=== PATIENT | female | born 1955 | race Two or more races ===

== ENCOUNTER 2025-03-16 19:31 | Inpatient (IN) | payer OTHER ==
[~2025-03-16] VITALS: Ht 157.5 cm; Wt 77.2 kg
--- NOTE | 2025-03-16 19:59 | ECG ---
[facility] Test Date: 2025-03-16 Test Time: 19:45:35 Pat Name: AMY KENT Department: Room: Gender: F Supervisor Pigment Making: JEREMY : 1955 Requested By: CAROL ANDRADE Order Number: [id number] Reading MD: Measurements Intervals [place] Rate: 63 P: 49 VA: 165 QRS: 39 QRSD: 82 T: 40 QT: 412 QTc: 422 Interpretive Statements Sinus rhythm Probable left atrial enlargement Please click the below link to view image of tracing.
[2025-03-16] MEDS: MECLIZINE HCL 25 MG TAB PO ONE (20:26)
[2025-03-16] MEDS: SODIUM CHLORIDE 0.9% 1,000 ML IV ONE (20:43)
--- NOTE | 2025-03-16 20:43 | DVH ---
CLINICAL HISTORY: Severe dizziness, HERNANDEZ TECHNIQUE: Helical scanning was performed of the head from the skull base to the vertex. Multiplanar reconstructions were performed. This exam was performed according to our departmental dose optimizat ion program. Up-to-date CT equipment and radiation dose reduction techniques are utilized as appropri ate. CTDI 58 DLP 818 COMPARISON: None FINDINGS: There is no evidence for acute intracranial hemorrhage, acute ischemic changes, mass, mass effect, or extra-axial fluid collection. There is no hydrocephalus or midline shift. There is no effacement of the cerebral sulci and basal subarachnoid cisterns. The geiger-white matter differentiation is well petrona ntained. The imaged paranasal sinuses are clear. There has been bilateral cataract extraction. IMPRESSION: NO ACUTE INTRACRANIAL ABNORMALITY SEEN.
[2025-03-16 20:59] LABS: Hematocrit 42.8 % (36.0-46.0); Hemoglobin 14.8 g/dL (12.2-16.2); Mean Corpuscular Hemoglobin 31.1 pg (28.0-32.0); Mean Corpuscular Volume 90.2 fL (80.0-100.0); Nucleated Red Blood Cells % 0.1 %
[2025-03-16 21:13] LABS: Potassium 4.0 mmol/L (3.5-5.1); Sodium 139 mmol/L (136-145)
[2025-03-16 21:14] LABS: Anion Gap 8 (5-15); Carbon Dioxide 24 mmol/L (20-31)
[2025-03-16 21:19] LABS: BUN/Creatinine Ratio 17.6 (10.0-20.0); Blood Urea Nitrogen 13 mg/dL (9-23)
[2025-03-16 21:25] LABS: Calcium 10.5 mg/dL (8.7-10.4); Chloride 107 mmol/L (98-107); Glucose 112 mg/dL (74-106)
--- NOTE | 2025-03-16 22:26 | ED.PDOC ---
History of Present Illness Chief Complaint: Nausea/Vomiting Time Seen by MD: 19:48 Allergies: Coded Allergies: NO KNOWN ALLERGIES (Unverified , 03/16/25) Mode of Arrival: Ambulatory Was a procedure done? Was a procedure done?: No EKG EKG : Comments NSR. Rate 64. No STEMI. ? Left atrial enlargement. Differential Dx Considerations may include: Differential diagnoses considered include but are not limited to cardiac structural disease, arrhythmia, acute coronary syndrome, orthostasis, pulmonary embolism, dissection, seizure, basilar stroke, other. X-Ray, Labs, Meds, VS Vital Signs Date Time Temp Pulse Resp B/P (MAP) Pulse Ox O2 Delivery O2 Flow Rate FiO2 03/16/25 20:52 Room Air* 0 21 03/16/25 20:47 55 159/85 189 105/59 03/16/25 20:46 98.0 57 16 159/85 (109) 97 98.0 03/16/25 19:45 63 03/16/25 19:37 98.0 62 16 187/99 96 98.0 Lab Test 03/16/25 21:38 03/16/25 20:43 Range/Units Troponin I High Sensitivity 5 3 L </=34 ng/L White Blood Count 6.9 4.4-10.8 10^3/uL Red Blood Count 4.75 4.0-5.20 10^6/uL Hemoglobin 14.8 12.2-16.2 g/dL Hematocrit 42.8 36.0-46.0 % Mean Corpuscular Volume 90.2 80.0-100.0 fL Mean Corpuscular Hemoglobin 31.1 28.0-32.0 pg Mean Corpuscular Hemoglobin Concent 34.5 32.0-36.0 g/dL Red Cell Distribution Width 13.6 11.8-14.3 % Platelet Count 224 140-450 10^3/uL Mean Platelet Volume 9.8 6.9-10.8 fL Neutrophils (%) (Auto) 68.1 37.0-80.0 % Lymphocytes (%) (Auto) 22.6 10.0-50.0 % Monocytes (%) (Auto) 6.2 0.0-12.0 % Eosinophils (%) (Auto) 2.8 0.0-7.0 % Basophils (%) (Auto) 0.3 0.0-2.0 % Neutrophils # (Auto) 4.7 1.6-8.6 10 ^3/uL Lymphocytes # (Auto) 1.6 0.4-5.4 10 ^3/uL Monocytes # (Auto) 0.4 0-1.3 10 ^3/uL Eosinophils # (Auto) 0.2 0-0.8 10 ^3/uL Basophils # (Auto) 0 0-0.2 10 ^3/uL Nucleated Red Blood Cells 0.1 % Sodium Level 139 136-145 mmol/L Potassium Level 4.0 3.5-5.1 mmol/L Chloride Level 107 98-107 mmol/L Carbon Dioxide Level 24 20-31 mmol/L Anion Gap 8 5-15 Blood Urea Nitrogen 13 9-23 mg/dL Creatinine 0.74 0.550-1.02 mg/dL Glomerular Filtration Rate Calc 87 >90 mL/min BUN/Creatinine Ratio 17.6 10.0-20.0 Serum Glucose 112 H 74-106 mg/dL Calcium Level 10.5 H 8.7-10.4 mg/dL B-Type Natriuretic Peptide 95.26 0-100 pg/mL Current Medications Medications (Trade) Dose Ordered Sig/Mikaela Route Start Time Stop Time Status Last Admin Sodium Chloride 1,000 ml @ 1,000 mls/hr Q1H ONCE IV 03/16/25 20:15 03/16/25 21:14 DC 03/16/25 20:43 Meclizine HCl (Antivert Tablet) 50 mg ONCE ONCE PO 03/16/25 20:15 03/16/25 20:16 DC 03/16/25 20:26 PATIENT: AMY KENT ACCT: [id number] UNIT: [id number] : 1955 LOC: ER ROOM / BED: / AGE / SEX: 69 / F ADM STATUS: REG ER SERVICE 13 ORDERING PHYSICIAN: CAROL ANDRADE MD PROCEDURE(s): HWOCT - HEAD WITHOUT CONTRAST REASON: Severe dizziness, HERNANDEZ ORDER NUMBER(s): [id number], ACCESSION NUMBER(s): [id number] CLINICAL HISTORY: Severe dizziness, HERNANDEZ TECHNIQUE: Helical scanning was performed of the head from the skull base to the vertex. Multiplanar reconstructions were performed. This exam was performed according to our departmental dose optimization program. Up-to-date CT equipment and radiation dose reduction techniques are utilized as appropriate. CTDI 58 DLP 818 COMPARISON: None FINDINGS: There is no evidence for acute intracranial hemorrhage, acute ischemic changes, mass, mass effect, or extra-axial fluid collection. There is no hydrocephalus or midline shift. There is no effacement of the cerebral sulci and basal subarachnoid cisterns. The geiger-white matter differentiation is well maintained. The imaged paranasal sinuses are clear. There has been bilateral cataract extraction. IMPRESSION: NO ACUTE INTRACRANIAL ABNORMALITY SEEN. Time of 1ST Reevaluation: 22:21 Reevaluation 1ST: Unchanged Patient Education/Counseling: Other (need for admission) Family Education/Counseling: Other (need for admission) SEPSIS Sepsis Screen Date sepsis recognized/suspect: Mar 16, 2025 Time Sepsis recognized/suspect: 1940 Recent Procedure: No On Antibiotic Therapy: No Respiratory Rate >20: No Heart Rate >90: No Temp<36 C (96.8 F) or >38.3 C: No SBP <90 or MAP <65 mmHG: No New Acute Mental Status Change: No Is the patient on CPAP, BIPAP,: No Physician Orders Computator (03/16/25 ) Orthostatic Vital Signs (03/16/25 ) Saline Lock (03/16/25 20:14) Fall Precautions Initiated (03/16/25 20:14) Head Without Contrast (03/16/25 20:14) Vital Signs Date Time Temp Pulse Resp B/P (MAP) Pulse Ox O2 Delivery O2 Flow Rate FiO2 03/16/25 20:52 Room Air* 0 21 03/16/25 20:47 55 159/85 189 105/59 03/16/25 20:46 98.0 57 16 159/85 (109) 97 98.0 03/16/25 19:45 63 03/16/25 19:37 98.0 62 16 187/99 96 98.0 Laboratory Tests Test 03/16/25 20:43 White Blood Count 6.9 10^3/uL (4.4-10.8) Medications Medications Dose Ordered Sig/Mikaela Route Start Time Stop Time Status Last Admin Dose Admin Meclizine HCl 50 mg ONCE ONCE PO 03/16/25 20:15 03/16/25 20:16 DC 03/16/25 20:26 Sodium Chloride 1,000 ml @ 1,000 mls/hr Q1H ONCE IV 03/16/25 20:15 03/16/25 21:14 DC 03/16/25 20:43 Departure 1 Departure Time of Disposition: 22:26 Impression: Primary Impression: Dizziness Additional Impressions: Orthostatic hypotension Chest pain Disposition: ADMITTED INPATIENT Condition: Stable Comments Patient admitted to hospitalist service for further treatment, evaluation and m onitoring. MDM: Extensive evaluation was performed in attempt to identify or rule out: (See differential diagnosis section) The following tests were ordered, and results were reviewed by me and discussed with patient: (See diagnostic results section) The following test were independently interpreted by me: N/A I reviewed and agreed with the following test results read by other providers: N/A I reviewed the following notes from the pt's past medical encounters: N/A Additional information was gathered from interviewing the following independent historians: N/A Discussion of management or test interpretation with external physician/other qualified health childcare center administrator: Dony Tubbs Decision regarding hospitalization or escalation of hospital level of care: Risk and benefits of admission for further treatment of patient's condition was considered. Due to patient's current clinical condition, high risk of decline and poor outcome if discharged and need for further inpatient management and monitoring, patient will be admitted to the hospital. Regarding hospitalization or escalation of hospital level of care: Risks and benefits of admission for further treatment of patient's condition was considered however due to patient's stable condition patient will be discharged to follow up closely or return to care for worsening of condition or inability to follow up. Critical Care Note Critical Care Time?: No Stability Stability form required: No Heart Score Heart Score: Heart Score Response (Comments) Value History N/A 0 EKG N/A 0 Age N/A 0 Risk Factors N/A 0 Troponin N/A 0 Total 0 CAROL ANDRADE MD Mar 16, 2025 22:26
[2025-03-17] VITALS (10 sets, daily range): BP systolic 126–156; BP diastolic 60–84; PULSE 54–76; RESP 12–20; TEMP 97.5–98.9; O2SAT 93–97
[2025-03-17] MEDS ORDERED: NITROGLYCERIN 0.4 MG SL TAB SL PRN (00:15)
[2025-03-17] MEDS ORDERED: DOCUSATE SOD 100 MG CAP PO PRN (00:15)
[2025-03-17] MEDS ORDERED: ONDANSETRON HCL 4 MG/2 ML VIAL IV PRN (00:15)
[2025-03-17] MEDS ORDERED: ACETAMINOPHEN 325 MG TAB PO PRN (00:15)
[2025-03-17] MEDS ORDERED: MORPHINE SULFATE INJ 2 MG/ml SYRG IV PRN (00:15)
[2025-03-17] MEDS: SODIUM CHLORIDE 0.9% 1,000 ML IV SCH ×2 (00:15→07:25)
[2025-03-17] MEDS ORDERED: LOSA-533 PO (01:42)
--- NOTE | 2025-03-17 02:02 | DVHHP2 ---
MILKA ANN RADIO STATION MANAGER 03/17/25 0202: History of Present Illness Reason for Visit: Dizziness History of Present Illness 69-year-old female with past medical history of hypertension presents with complaints of dizziness x1 day. Patient is also endorsing chest pain, nausea, vomiting, diaphoresis. Patient endorses she is normally an active person with out complications. States her PCP recently made an adjustment to her home medications and added 10 mg Bystolic. Also takes losartan 50 mg twice a day. While in the emergency department patient did have positive orthostatic vital signs. At this time the patient denies fevers, chills, cough, congestion, abdominal pain, dysuria, leg edema. Cardiovascular: HTN Smoke: No ALCOHOL: none Drugs: None Lives: with Family Review of Systems Constitutional: Yes: Malaise; No: Fever, Chills, Sweats, Weakness, Other Eyes: No: Pain, Vision change, Conjunctivae inflammation, Eyelid inflammation, Other, Redness ENT: No: Ear pain, Ear discharge, Nose pain, Nose discharge, Nose congestion, Mouth pain, Mouth swelling, Throat pain, Throat swelling, Other Respiratory: No: Cough, Dry, Shortness of breath, SOB with excertion, Wheezing, Hemoptysis, Pleuritic Pain, Sputum, Wheezing, Other Cardiovascular: Chest Pain, Lt Headedness; No: Palpitations, Orthopnea, Paroxysmal Noc. Dyspnea, Edema, Other Gastrointestinal: Nausea, Vomiting; No: Abdominal Pain, Diarrhea, Constipation, Melena, Hematochezia, Other Genitourinary: No Dysuria, No Frequency, No Incontinence, No Hematuria, No Retention, No Other Musculoskeletal: No: other, neck pain, shoulder pain, arm pain, back pain, hand pain, leg pain, foot pain Skin: No: Rash, Lesions, Jaundice, Bruising, Other Neurological: No: Weakness, Numbness, Incoordination, Change in speech, Confusion, Seizures, Other Allergies: Coded Allergies: NO KNOWN ALLERGIES (Unverified , 03/16/25) Medications Current Medications Medications Dose Ordered Sig/Mikaela Route Start Time Stop Time Status Last Admin Dose Admin Sodium Chloride 1,000 ml @ 75 mls/hr [id number] IV 03/17/25 00:15 Docusate Sodium 100 mg BIDPRN PRN PO 03/17/25 00:15 Acetaminophen 650 mg Q6HP PRN PO 03/17/25 00:15 Ondansetron HCl 4 mg Q4HP PRN IV 03/17/25 00:15 Enoxaparin Sodium 40 mg DAILY SC 03/17/25 10:00 Nitroglycerin 0.4 mg Q5MINP PRN SL 03/17/25 00:15 Morphine Sulfate 2 mg Q30M PRN IV 03/17/25 00:15 Losartan Potassium 50 mg BID PO 03/17/25 10:00 Exam Vital Signs Vital Signs Date Time Temp Pulse Resp B/P (MAP) Pulse Ox O2 Delivery O2 Flow Rate FiO2 03/16/25 20:52 Room Air* 0 21 03/16/25 20:47 55 159/85 189 105/59 03/16/25 20:46 98.0 16 97 98.0 General Appearance: Alert, Oriented X3, Cooperative, No acute distress HEENT: Atraumatic, PERRLA, EOMI Respiratory: Normal air movement, Other Cardiovascular: Normal S1 Abdominal: Normal bowel sounds, Soft, No tenderness Extremities: No cyanosis, No edema Skin: No rashes, No breakdown Neuro: Normal speech, Strength at 5/5 X4 ext, Sensation intact, Cranial nerves 3-12 NL Psych/Mental Status: Mental status NL, Mood NL Labs/Xrays Labs Test 03/16/25 21:38 03/16/25 20:43 Range/Units Troponin I High Sensitivity 5 </=34 ng/L White Blood Count 6.9 4.4-10.8 10^3/uL Red Blood Count 4.75 4.0-5.20 10^6/uL Hemoglobin 14.8 12.2-16.2 g/dL Hematocrit 42.8 36.0-46.0 % Mean Corpuscular Volume 90.2 80.0-100.0 fL Mean Corpuscular Hemoglobin 31.1 28.0-32.0 pg Mean Corpuscular Hemoglobin Concent 34.5 32.0-36.0 g/dL Red Cell Distribution Width 13.6 11.8-14.3 % Platelet Count 224 140-450 10^3/uL Mean Platelet Volume 9.8 6.9-10.8 fL Neutrophils (%) (Auto) 68.1 37.0-80.0 % Lymphocytes (%) (Auto) 22.6 10.0-50.0 % Monocytes (%) (Auto) 6.2 0.0-12.0 % Eosinophils (%) (Auto) 2.8 0.0-7.0 % Basophils (%) (Auto) 0.3 0.0-2.0 % Neutrophils # (Auto) 4.7 1.6-8.6 10 ^3/uL Lymphocytes # (Auto) 1.6 0.4-5.4 10 ^3/uL Monocytes # (Auto) 0.4 0-1.3 10 ^3/uL Eosinophils # (Auto) 0.2 0-0.8 10 ^3/uL Basophils # (Auto) 0 0-0.2 10 ^3/uL Nucleated Red Blood Cells 0.1 % Sodium Level 139 136-145 mmol/L Potassium Level 4.0 3.5-5.1 mmol/L Chloride Level 107 98-107 mmol/L Carbon Dioxide Level 24 20-31 mmol/L Anion Gap 8 5-15 Blood Urea Nitrogen 13 9-23 mg/dL Creatinine 0.74 0.550-1.02 mg/dL Glomerular Filtration Rate Calc 87 >90 mL/min BUN/Creatinine Ratio 17.6 10.0-20.0 Serum Glucose 112 H 74-106 mg/dL Calcium Level 10.5 H 8.7-10.4 mg/dL B-Type Natriuretic Peptide 95.26 0-100 pg/mL SEPSIS Sepsis Screen Date sepsis recognized/suspect: Mar 16, 2025 Time Sepsis recognized/suspect: 1940 Recent Procedure: No On Antibiotic Therapy: No Respiratory Rate >20: No Heart Rate >90: No Temp<36 C (96.8 F) or >38.3 C: No SBP <90 or MAP <65 mmHG: No New Acute Mental Status Change: No Is the patient on CPAP, BIPAP,: No Physician Orders Wheel Lacer And Truer (03/16/25 ) Orthostatic Vital Signs (03/16/25 ) Saline Lock (03/16/25 20:14) Fall Precautions Initiated (03/16/25 20:14) Head Without Contrast (03/16/25 20:14) Admit (03/17/25 00:07) Code Status (03/17/25 00:07) Vital Signs .PER UNIT PROTOCOL (03/17/25 00:07) Review Orders With Adm. (03/17/25 00:07) Encourage Activity As Tolerate (03/17/25 00:07) Consistent Carb(Ccho)Diabetes (03/17/25 Breakfast) Sodium Chloride 0.9% (03/17/25 00:15) Oxygen By Face Mask (03/17/25 00:07) Docusate Sodium Capsule (Colace Capsule) (03/17/25 00:15) Acetaminophen Tablet (Tylenol Tablet) (03/17/25 00:15) Notify Md Of Changes From Base (03/17/25 00:07) Advance Directive (03/17/25:07) Echo 2d Mode Cardiac Dop (03/17/25:07) Basic Metabolic Panel (03/17/25 05:00) Basic Metabolic Panel (03/18/25 05:00) Basic Metabolic Panel (03/19/25 05:00) Complete Blood Count (03/17/25 05:00) Complete Blood Count (03/18/25 05:00) Complete Blood Count (03/19/25 05:00) Patient Condition (03/17/25 00:07) Allergies (03/17/25 00:07) Ondansetron Hcl (Zofran) (03/17/25 00:15) Enoxaparin Sodium (Lovenox) (03/17/25 10:00) Nitroglycerin Sublingual (Ntrostat Subli (03/17/25 00:15) Morphine Sulfate Injection (03/17/25 00:15) Stat Ekg For Chest Pain (03/17/25 00:07) Notify Md Of Changes From Base (03/17/25 00:07) Band Saw Operator Cake Cutting For 24 Hours (03/17/25 00:07) Emergency Dysrhythmia Protocol (03/17/25 00:07) Rhythm Strips Once Every Shift (03/17/25 00:07) Oxygen By Nasal Cannula (03/17/25 00:07) * Cardiology Consult (03/17/25 00:07) Pt Request For Service (03/17/25 00:) Orthostatic Vital Signs (03/17/25 08:00) Orthostatic Vital Signs (03/18/25 08:00) Orthostatic Vital Signs (03/19/25 08:00) Orthostatic Vital Signs (03/20/25 08:00) Losartan Tablet (Cozaar Tablet) (03/17/25 10:00) Vital Signs Date Time Temp Pulse Resp B/P (MAP) Pulse Ox O2 Delivery O2 Flow Rate FiO2 03/16/25 20:52 Room Air* 0 21 03/16/25 20:47 55 159/85 189 105/59 03/16/25 20:46 98.0 57 16 159/85 (109) 97 98.0 03/16/25 19:45 63 03/16/25 19:37 98.0 62 16 187/99 96 98.0 Laboratory Tests Test 03/16/25 20:43 White Blood Count 6.9 10^3/uL (4.4-10.8) Medications Medications Dose Ordered Sig/Mikaela Route Start Time Stop Time Status Last Admin Dose Admin Meclizine HCl 50 mg ONCE ONCE PO 03/16/25 20:15 03/16/25 20:16 DC 03/16/25 20:26 50 MG Sodium Chloride 1,000 ml @ 1,000 mls/hr Q1H ONCE IV 03/16/25 20:15 03/16/25 21:14 DC 03/16/25 20:43 1,000 MLS/HR Assessment/Plan Assessment/Plan Uncontrolled HTN Chest pain Dizziness Positive orthostatic VS Plan Admit telemetry Cardiology consult. Echocardiogram. Continue home medication. As needed antihypertensive for optimal BP management. Orthostatic vital signs every shift. Will hold Bystolic for Bradycardia. IVF PT evaluation. DVT ppx lovenox Plan discussed with: Patient, Daughter My Orders Orders - MILKA ANN NP Procedure Category Date Status Time Admit ADMIT 03/17/25 Transmitted 00:07 Code Status CODE 03/17/25 Transmitted 00:07 Vital Signs LUIS MANUEL 03/17/25 In Process 00:07 Review Orders With LUIS MANUEL 03/17/25 In Process Adm. 00:07 Encourage Activity As LUIS MANUEL 03/17/25 In Process Tolerate 00:07 Consistent DIET 03/17/25 Transmitted Carb(Ccho)Diabetes Breakfast Sodium Chloride 0.9% PHA 03/17/25 In Process 00:15 Oxygen By Face Mask RT 03/17/25 Transmitted 00:07 Docusate Sodium PHA 03/17/25 In Process Capsule (Colace 00:15 Acetaminophen Tablet PHA 03/17/25 In Process (Tylenol Tablet) 00:15 Notify Of Changes LUIS MANUEL 03/17/25 In Process From Base 00:07 Advance Directive LUIS MANUEL 03/17/25 In Process 00:07 Echo 2d Mode Cardiac US 03/17/25 Logged DOP 00:07 Basic Metabolic Panel LAB 03/17/25 Logged 05:00 Basic Metabolic Panel LAB 03/18/25 Verified 05:00 Basic Metabolic Panel LAB 03/19/25 Verified 05:00 Complete Blood Count LAB 03/17/25 Logged 05:00 Complete Blood Count LAB 03/18/25 Verified 05:00 Complete Blood Count LAB 03/19/25 Verified 05:00 Patient Condition ORDERS 03/17/25 Transmitted 00:07 Allergies LUIS MANUEL 03/17/25 In Process 00:07 Ondansetron Hcl PHA 03/17/25 In Process (Zofran) 00:15 Enoxaparin Sodium PHA 03/17/25 In Process (Lovenox) 10:00 Nitroglycerin PHA 03/17/25 In Process Sublingual (Ntrostat 00:15 Morphine Sulfate PHA 03/17/25 In Process Injection 00:15 Stat Ekg For Chest LUIS MANUEL 03/17/25 In Process Pain 00:07 Notify Of Changes BANNER 03/17/25 In Process From Base 00:07 Band Saw Operator Cake Cutting For BANNER 03/17/25 In Process 24 Hours 00:07 Emergency Dysrhythmia LUIS MANUEL 03/17/25 In Process Protocol 00:07 Rhythm Strips Once [place]ANNER 03/17/25 In Process Every Shift 00:07 Oxygen By Nasal RT 03/17/25 Transmitted Cannula 00:07 * Cardiology Consult CONS 03/17/25 Transmitted 00:07 Pt Request For Service PT 03/17/25 Logged 00:07 Orthostatic Vital ORDERS 03/17/25 Transmitted Signs 08:00 Orthostatic Vital ORDERS 03/18/25 Transmitted Signs 08:00 Orthostatic Vital ORDERS 03/19/25 Transmitted Signs 08:00 Orthostatic Vital ORDERS 03/20/25 Transmitted Signs 08:00 Losartan Tablet PHA 03/17/25 In Process (Cozaar Tablet) 10:00 Date of Service: Mar 17, 2025 Billing Provider: CORDELIA JONES MD Common Visit Codes: NOT BILLABLE CORDELIA JONES MD 03/17/25 1350: Review of Systems Allergies: Coded Allergies: NO KNOWN ALLERGIES (Unverified , 03/16/25) Additional Comments Additional Comments Additional Comments Patient seen and evaluated by me earlier today. Patient is seen and admitted by nurse practitioner this morning. I agree with his evaluation, documentation, assessment and care plan as outlined. MILKA ANN NP Mar 17, 2025 02:02 CORDELIA JONES MD Mar 17, 2025 13:50
[2025-03-17] MEDS: hydrALAZINE HCL 20 MG/ML VL IV PRN (02:23)
[2025-03-17 06:35] LABS: Hematocrit 40.5 % (36.0-46.0); Hemoglobin 14.1 g/dL (12.2-16.2); Mean Corpuscular Hemoglobin 30.9 pg (28.0-32.0); Mean Corpuscular Volume 89.0 fL (80.0-100.0); Nucleated Red Blood Cells % 0.1 %
[2025-03-17 06:40] LABS: Anion Gap 7 (5-15); Calcium 9.7 mg/dL (8.7-10.4); Carbon Dioxide 27 mmol/L (20-31); Potassium 4.4 mmol/L (3.5-5.1); Sodium 142 mmol/L (136-145)
[2025-03-17 06:41] LABS: Chloride 108 mmol/L (98-107)
[2025-03-17 06:46] LABS: BUN/Creatinine Ratio 12.0 (10.0-20.0); Blood Urea Nitrogen 9 mg/dL (9-23); Glucose 103 mg/dL (74-106)
[2025-03-17] MEDS: LOSARTAN POTASSIUM 50 MG TAB PO SCH (09:16)
[2025-03-17] MEDS: ENOXAPARIN SOD 40 MG/0.4 ML SYRINGE SC SCH (09:16)
--- NOTE | 2025-03-17 09:35 | DVHINCON2 ---
Date Seen: Mar 17, 2025 Referring Physician JOSE Tubbs Reason for Consultation Shortness of breath and elevated blood pressure. History of Present Illness This is a 69-year-old female with a history of refractory hypertension who presents for evaluation of shortness of breath and high blood pressure. She reports being previously on Losartan 50 mg BID, also amlodipine 5 mg which was discontinued by her PCP and replaced with Nebivolol 10 mg daily. Since that change, she has experienced dizziness, nausea, and a sensation of shortness of breath rather than true chest pain. She notes that her shortness of breath began after a COVID infection in June and has progressively worsened, with decreased exercise tolerance. Yesterday, she experienced a brief episode of confusion while paying bills she lost focus for a few minutes but recovered spontaneously. She currently denies weakness, speech difficulty, or visual changes. She reports orthopnea but denies paroxysmal nocturnal dyspnea or leg swelling. Past Medical History Hypertension (refractory) COVID infection (Jun 2024) Medications Losartan 50 mg BID Nebivolol 10 mg daily Allergies No known drug allergies EKG: Normal sinus rhythm. Troponin: Negative. Chest X-ray: Pending. Echocardiogram: Pending. Family History: Patient reports no known family medical history. Allergies: Coded Allergies: NO KNOWN ALLERGIES (Unverified , 03/16/25) Home Meds Active Scripts Irbesartan (IRBESARTAN) 300 Mg Tab, 1 TAB PO DAILY for 30 Days, #30 TAB 5 Refills Prov:AMY SANTANA RESIDENT 03/17/25 Reported Medications Losartan Potassium (Losartan Potassium) 25 Mg Tab, 1 TAB PO DAILY, #90 TAB 1 Refill 03/17/25 Current Medications Current Medications Medications (Trade) Dose Ordered Sig/Mikaela Route PRN Reason Start Time Stop Time Status Last Admin Sodium Chloride 1,000 ml @ 75 mls/hr [id number] IV 03/17/25 00:15 03/17/25 06:40 DC Docusate Sodium (Colace Capsule) 100 mg BIDPRN PRN PO FOR CONSTIPATION 03/17/25 00:15 Acetaminophen (Tylenol Tablet) 650 mg Q6HP PRN PO PAIN SCALE 1-3 OR TEMP>100.4 03/17/25 00:15 Ondansetron HCl (Zofran) 4 mg Q4HP PRN IV NAUSEA / VOMITING 03/17/25 00:15 Enoxaparin Sodium (Lovenox) 40 mg DAILY SC 03/17/25 10:00 03/17/25 09:16 Nitroglycerin (Ntrostat Sublingual) 0.4 mg Q5MINP PRN SL FOR CHEST PAIN 03/17/25 00:15 Morphine Sulfate 2 mg Q30M PRN IV FOR CHEST PAIN 03/17/25 00:15 Losartan Potassium (Cozaar Tablet) 50 mg BID PO 03/17/25 10:00 03/17/25 09:16 Hydralazine HCl (Apresoline Injection) 10 mg Q6HR PRN IV SBP > 160 03/17/25 02:15 03/17/25 02:23 Sodium Chloride 1,000 ml @ 75 mls/hr [id number] IV 03/17/25 06:45 03/17/25 20:04 03/17/25 07:25 Nifedipine (Procardia Xl (Time-Release)) 30 mg DAILY PO 03/17/25 10:00 UNV Review of Systems Constitutional: Denies fever or chills. Cardiac: Reports dyspnea on exertion; denies chest pain or palpitations. Respiratory: Reports shortness of breath; denies cough or sputum. GI: Reports occasional nausea; denies vomiting, abdominal pain, or diarrhea. Neuro: Brief confusion episode as described; denies focal weakness, numbness, or speech changes. , MSK, Skin, Psych: Negative. Vital Signs Vital Signs Date Time Temp Pulse Resp B/P (MAP) Pulse Ox O2 Delivery O2 Flow Rate FiO2 03/17/25 09:16 156/66 03/17/25 05:00 97.5 70 12 95 97.5 03/17/25 01:43 Room Air* 0 21 Physical Exam General: Alert, oriented, in no acute distress. Vital Signs: Orthostatic hypotension noted; blood pressures elevated at baseline. HR 50-60s. HEENT: No JVD, mucous membranes moist. Cardiac: Regular rate and rhythm, no murmurs, rubs, or gallops. Lungs: Clear to auscultation bilaterally, no wheezes or rales. Abdomen: Soft, non-tender, non-distended. Extremities: No edema, pulses intact. Neuro: Non-focal; cranial nerves intact. Labs/Diagnostic Data Labs Test 03/17/25 05:55 03/16/25 21:38 03/16/25 20:43 Range/Units White Blood Count 5.4 4.4-10.8 10^3/uL Red Blood Count 4.55 4.0-5.20 10^6/uL Hemoglobin 14.1 12.2-16.2 g/dL Hematocrit 40.5 36.0-46.0 % Mean Corpuscular Volume 89.0 80.0-100.0 fL Mean Corpuscular Hemoglobin 30.9 28.0-32.0 pg Mean Corpuscular Hemoglobin Concent 34.7 32.0-36.0 g/dL Red Cell Distribution Width 13.8 11.8-14.3 % Platelet Count 203 140-450 10^3/uL Mean Platelet Volume 10.1 6.9-10.8 fL Neutrophils (%) (Auto) 56.7 37.0-80.0 % Lymphocytes (%) (Auto) 30.3 10.0-50.0 % Monocytes (%) (Auto) 8.8 0.0-12.0 % Eosinophils (%) (Auto) 3.8 0.0-7.0 % Basophils (%) (Auto) 0.4 0.0-2.0 % Neutrophils # (Auto) 3.1 1.6-8.6 10 ^3/uL Lymphocytes # (Auto) 1.6 0.4-5.4 10 ^3/uL Monocytes # (Auto) 0.5 0-1.3 10 ^3/uL Eosinophils # (Auto) 0.2 0-0.8 10 ^3/uL Basophils # (Auto) 0 0-0.2 10 ^3/uL Nucleated Red Blood Cells 0.1 % Sodium Level 142 136-145 mmol/L Potassium Level 4.4 3.5-5.1 mmol/L Chloride Level 108 H 98-107 mmol/L Carbon Dioxide Level 27 20-31 mmol/L Anion Gap 7 5-15 Blood Urea Nitrogen 9 9-23 mg/dL Creatinine 0.75 0.550-1.02 mg/dL Glomerular Filtration Rate Calc 86 >90 mL/min BUN/Creatinine Ratio 12.0 10.0-20.0 Serum Glucose 103 74-106 mg/dL Calcium Level 9.7 8.7-10.4 mg/dL Troponin I High Sensitivity 5 </=34 ng/L B-Type Natriuretic Peptide 95.26 0-100 pg/mL Assessment 69-year-old female with refractory hypertension and orthostatic hypotension after medication change, presenting with shortness of breath and functional decline. Cardiac ischemia less likely (negative troponin, normal EKG). Consider diastolic dysfunction or post-COVID cardiomyopathy contributing to dyspnea. Plan/Recommendation 1. Hypertension: Hypertensive crisis / Orthostatic hypotension: - Discontinue Nebivolol (due to bradycardia and symptomatic hypotension). - Continue Losartan 50 mg BID inpatient, patient can be placed on irbesartan as outpatient (is stronger than losartan) - Hold on dihydropyridines due to orthostatic hypotension - If other agents are needed for BPs control: hydralazine and prazosin can be used - Educate on orthostatic precautions: maintain hydration, avoid abrupt standing, use compression stockings. - TSH, aldosterone and cortisol ordered 2. Dyspnea on exertion: - Await echocardiogram to assess LV function and diastolic parameters. - Continue monitoring for decompensation. 3. Transient confusion episode: - Monitor for recurrence: normal head CT scan - If recurrent, consider neurology consult to rule out TIA. Follow-up: - Re-evaluate once echo results are available. Case discussed with Dr Fry Time spent on care 71 min Plan discussed with: Patient, Other (daughter ) NYHA Physical activity limitations: Class2(Slight)fatigue,sob Date of Service: Mar 17, 2025 Billing Provider: KIP FRY Sr., MD Cardiology Common Codes: 21674-[id number] CARE 30-74 MIN AMY SANTANA RESIDENT Mar 17, 2025 09:35
--- NOTE | 2025-03-17 11:01 | DVH ---
CHEST RADIOGRAPH Indication: sob Technique: Single frontal view of the chest was obtained Comparison: None FINDINGS: Lines and Tubes: None Lungs: No focal consolidation. Pleura: No effusion. No pneumothorax. Cardiomediastinal contours: Unremarkable Bones: No acute osseous abnormality. IMPRESSION: No acute cardiopulmonary disease.
[2025-03-17] MEDS ORDERED: IRBE300T43 PO (16:16)
[2025-03-18 01:00] VITALS: BP 115/61; PULSE 61; RESP 18; TEMP 98.9; O2SAT 100
[2025-03-18 05:00] VITALS: BP 135/78; PULSE 60; RESP 17; TEMP 97.5; O2SAT 98
[2025-03-18 08:00] VITALS: PULSE 55; PULSE 56; PULSE 62; RESP 18; O2SAT 95
[2025-03-18 08:51] LABS: Chloride 106 mmol/L (98-107); Potassium 4.2 mmol/L (3.5-5.1); Sodium 140 mmol/L (136-145)
[2025-03-18 08:52] LABS: Anion Gap 9 (5-15); Carbon Dioxide 25 mmol/L (20-31); Hematocrit 43.6 % (36.0-46.0); Hemoglobin 14.9 g/dL (12.2-16.2); Mean Corpuscular Hemoglobin 30.5 pg (28.0-32.0); Mean Corpuscular Volume 89.3 fL (80.0-100.0); Nucleated Red Blood Cells % 0.1 %
[2025-03-18 08:53] LABS: Calcium 10.0 mg/dL (8.7-10.4)
[2025-03-18 08:57] LABS: Glucose 102 mg/dL (74-106)
[2025-03-18 08:58] LABS: BUN/Creatinine Ratio 12.2 (10.0-20.0); Blood Urea Nitrogen 10 mg/dL (9-23)
[2025-03-18 09:00] VITALS: BP 142/68; PULSE 63; RESP 18; TEMP 98.1; O2SAT 96
[2025-03-18] MEDS: LOSARTAN POTASSIUM 50 MG TAB PO SCH (10:39)
[2025-03-18 11:58] VITALS: BP 143/64; PULSE 62
[2025-03-18 13:00] VITALS: BP 137/80; PULSE 60; RESP 18; TEMP 97.9; O2SAT 96
[2025-03-18] MEDS ORDERED: CLON0.1T PO (14:37)
--- NOTE | 2025-03-18 19:14 | DVHSR ---
APPROVED REPORT EXAM: Two-dimensional and M-mode echocardiogram with Doppler and color Doppler. Blood Pressure: 130/60 mmHg INDICATION dizziness RISK FACTORS Height: 5'2, Weight: 164 DIMENSIONS LVDd4.2 (3.8-5.7cm)LA (2D)4.2 (1.9-4.0cm)Aortic Root2.6 (2.0-3.7cm) LVDs2.7 (2.5-4.0cm)LA (MM) (1.9-4.0cm)Aortic Cusp Exc1.8 (1.5-2.0cm) EF (%) 60.0 (55-70%)Rt. Atrium3.5 (1.9-4.0cm)Asc. Aorta3.2 cm IVSd1.0 (0.7-1.1cm)RV (D)3.5 (1.8-2.4cm) PWd0.8 (0.7-1.1cm) Mitral Valve MitralMitral Stenosis E wave0.98m/sMV Mean GR.mmHg A wave0.91m/sMV Peak GR.121mmHg E/A ratio1.12D MVAcm2 DECEL [id number] 1/2 Timems Aortic Valve Aortic ValveAortic Stenosis V10.96m/Silvana Mean GR.4mmHg V21.26m/Silvana Peak GR.6mmHg LVOT Diameter1.9 (1.8-2.4cm)Doppler AVA2.16cm2 AI P 1/2 Pmzn726.99ms Pulmonic Valve V20.81m/s Tricuspid Valve TR Velocity2.93m/s [id number] Conclusion Sinus rhythm. Left atrial enlargement. Aortic root enlargement. Mild LV enlargement. Valves appear to be structurally normal. Left ventricular systolic performance is mildly diminished. There is inferior septal hypokinesis. L eft ventricular systolic function is approximately 45%. Normal right ventricular function. Moderate tricuspid regurgitation. No pericardial effusion masses or vegetations.
--- NOTE | 2025-03-19 11:07 | DVHPNRES ---
Progress Note Date Seen: Mar 18, 2025 Resident Creating Document: AMY SANTANA RESIDENT Has the PT tested + for MRSA If YES, has PT been informed?: No Medical Necessity Reason Pt with a Central, PICC or Fol: No Subjective Review of Systems This is a 69-year-old female with a history of refractory hypertension who presents for evaluation of shortness of breath and high blood pressure. She reports being previously on Losartan 50 mg BID, also amlodipine 5 mg which was discontinued by her PCP and replaced with Nebivolol 10 mg daily. Since that change, she has experienced dizziness, nausea, and a sensation of shortness of breath rather than true chest pain. She notes that her shortness of breath began after a COVID infection in June and has progressively worsened, with decreased exercise tolerance. Yesterday, she experienced a brief episode of confusion while paying bills she lost focus for a few minutes but recovered spontaneously. She currently denies weakness, speech difficulty, or visual changes. She reports orthopnea but denies paroxysmal nocturnal dyspnea or leg swelling. Past Medical History Hypertension (refractory) COVID infection (Jun 2024) Medications Losartan 50 mg BID Nebivolol 10 mg daily Allergies No known drug allergies EKG: Normal sinus rhythm. Troponin: Negative. Chest X-ray: Normal Echocardiogram: prelim preserved EF, mild pulmonary hypertension Objective vital signs Vital Sign Date Time Temp Pulse Resp B/P (MAP) Pulse Ox O2 Delivery O2 Flow Rate FiO2 03/18/25 09:00 98.1 63 18 142/68 (92) 96 98.1 03/17/25 20:00 Room Air* 0 21 Total Intake and Output 03/17/25 03/17/25 03/18/25 15:00 23:00 07:00 Intake Total 800 ml 150 ml Output Total 150 ml Balance 800 ml 0 ml medications Current Medications Medications Dose Ordered Sig/Mikaela Route Start Time Stop Time Status Last Admin Dose Admin Docusate Sodium 100 mg BIDPRN PRN PO 03/17/25 00:15 Acetaminophen 650 mg Q6HP PRN PO 03/17/25 00:15 Ondansetron HCl 4 mg Q4HP PRN IV 03/17/25 00:15 Enoxaparin Sodium 40 mg DAILY SC 03/17/25 10:00 03/17/25 09:16 40 MG Nitroglycerin 0.4 mg Q5MINP PRN SL 03/17/25 00:15 Morphine Sulfate 2 mg Q30M PRN IV 03/17/25 00:15 Hydralazine HCl 10 mg Q6HR PRN IV 03/17/25 02:15 03/17/25 02:23 10 MG Losartan Potassium 50 mg BID PO 03/18/25 10:00 Examination General: Alert, oriented, in no acute distress. Vital Signs: Orthostatic hypotension noted; blood pressures elevated at baseline. HR 50-60s. HEENT: No JVD, mucous membranes moist. Cardiac: Regular rate and rhythm, no murmurs, rubs, or gallops. Lungs: Clear to auscultation bilaterally, no wheezes or rales. Abdomen: Soft, non-tender, non-distended. Extremities: No edema, pulses intact. Neuro: Non-focal; cranial nerves intact. laboratory and microbiology Laboratory Tests 03/18/25 07:57 Test 03/18/25 07:57 Range/Units Serum Glucose 102 74-106 mg/dL Problem List/Assessment/Plan Problem List/Assessment/Plan 69-year-old female with refractory hypertension and orthostatic hypotension after medication change, presenting with shortness of breath and functional decline. Cardiac ischemia less likely (negative troponin, normal EKG). Consider diastolic dysfunction or post-COVID cardiomyopathy contributing to dyspnea. Plan/Recommendation 1. Hypertension: Hypertensive crisis / Orthostatic hypotension: - Discontinue Nebivolol (due to bradycardia and symptomatic hypotension). - Continue Losartan 50 mg BID inpatient, patient can be placed on irbesartan as outpatient (is stronger than losartan) - Hold on dihydropyridines due to orthostatic hypotension - If other agents are needed for BPs control: hydralazine and prazosin can be used - Educate on orthostatic precautions: maintain hydration, avoid abrupt standing, use compression stockings. - TSH, aldosterone and cortisol ordered: TSH and cortisol normal, aldosterone and renin can be f/u as outpatient 2. Dyspnea on exertion: - Echocardiogram: prelim preserved EF, mild pulmonary hypertension - Continue monitoring for decompensation. 3. Transient confusion episode: - Monitor for recurrence: normal head CT scan - If recurrent, consider neurology consult to rule out TIA. From cardiology standpoint patient can continue f/u as outpatient, we will sign off of this case, call us if there is any questions Case discussed with Dr Fry Time spent on care 71 min Plan discussed with: Patient My Orders My Orders Orders - AMY SANTANA Procedure Category Date Status Time Renin Activity And LAB 03/17/25 In Process Aldosterone 16:22 Losartan Tablet PHA 03/18/25 In Process (Cozaar Tablet) 10:00 Visit Coding Cardiology RES Date of Service: Mar 18, 2025 Billing Provider: KIP FRY Sr., MD Cardiology Common Codes: [id number] CARE 30-74 MIN AMY SANTANA Mar 18, 2025 10:31
--- NOTE | 2025-03-19 11:08 | DVHPNRES ---
Progress Note Objective vital signs Vital Sign Date Time Temp Pulse Resp B/P (MAP) Pulse Ox O2 Delivery O2 Flow Rate FiO2 03/18/25 10:39 142/68 03/18/25 09:00 98.1 63 18 96 98.1 03/17/25 20:00 Room Air* 0 21 Total Intake and Output 03/17/25 03/17/25 03/18/25 15:00 23:00 07:00 Intake Total 800 ml 150 ml Output Total 150 ml Balance 800 ml 0 ml medications Current Medications Medications Dose Ordered Sig/Mikaela Route Start Time Stop Time Status Last Admin Dose Admin Docusate Sodium 100 mg BIDPRN PRN PO 03/17/25 00:15 Acetaminophen 650 mg Q6HP PRN PO 03/17/25 00:15 Ondansetron HCl 4 mg Q4HP PRN IV 03/17/25 00:15 Enoxaparin Sodium 40 mg DAILY SC 03/17/25 10:00 03/18/25 10:40 40 MG Nitroglycerin 0.4 mg Q5MINP PRN SL 03/17/25 00:15 Morphine Sulfate 2 mg Q30M PRN IV 03/17/25 00:15 Hydralazine HCl 10 mg Q6HR PRN IV 03/17/25 02:15 03/17/25 02:23 10 MG Losartan Potassium 50 mg BID PO 03/18/25 10:00 03/18/25 10:39 50 MG laboratory and microbiology Laboratory Tests 03/18/25 07:57 Test 03/18/25 07:57 Range/Units Serum Glucose 102 74-106 mg/dL My Orders My Orders Orders - AMY SANTANA Procedure Category Date Status Time Renin Activity And LAB 03/17/25 In Process Aldosterone 16:22 Losartan Tablet PHA 03/18/25 In Process (Cozaar Tablet) 10:00 AMY SANTANA RESIDENT Mar 18, 2025 11:12
--- NOTE | 2025-03-19 11:15 | DVHDS2 ---
Discharge Summary Date of Admission Mar 17, 2025 at 00:07 Date of Discharge: Mar 18, 2025 Labs/Diagnostic Data: Laboratory Results Test 03/18/25 07:57 03/17/25 17:17 03/17/25 05:55 03/16/25 21:38 White Blood Count 4.9 10^3/uL (4.4-10.8) Red Blood Count 4.89 10^6/uL (4.0-5.20) Hemoglobin 14.9 g/dL (12.2-16.2) Hematocrit 43.6 % (36.0-46.0) Mean Corpuscular Volume 89.3 fL (80.0-100.0) Mean Corpuscular Hemoglobin 30.5 pg (28.0-32.0) Mean Corpuscular Hemoglobin Concent 34.2 g/dL (32.0-36.0) Red Cell Distribution Width 13.9 % (11.8-14.3) Platelet Count 217 10^3/uL (140-450) Mean Platelet Volume 9.9 fL (6.9-10.8) Neutrophils (%) (Auto) 52.8 % (37.0-80.0) Lymphocytes (%) (Auto) 35.5 % (10.0-50.0) Monocytes (%) (Auto) 7.8 % (0.0-12.0) Eosinophils (%) (Auto) 3.4 % (0.0-7.0) Basophils (%) (Auto) 0.5 % (0.0-2.0) Neutrophils # (Auto) 2.6 10 ^3/uL (1.6-8.6) Lymphocytes # (Auto) 1.7 10 ^3/uL (0.4-5.4) Monocytes # (Auto) 0.4 10 ^3/uL (0-1.3) Eosinophils # (Auto) 0.2 10 ^3/uL (0-0.8) Basophils # (Auto) 0 10 ^3/uL (0-0.2) Nucleated Red Blood Cells 0.1 % Sodium Level 140 mmol/L (136-145) Potassium Level 4.2 mmol/L (3.5-5.1) Chloride Level 106 mmol/L (98-107) Carbon Dioxide Level 25 mmol/L (20-31) Anion Gap 9 (5-15) Blood Urea Nitrogen 10 mg/dL (9-23) Creatinine 0.82 mg/dL (0.550-1.02) Glomerular Filtration Rate Calc 77 mL/min (>90) BUN/Creatinine Ratio 12.2 (10.0-20.0) Serum Glucose 102 mg/dL (74-106) Calcium Level 10.0 mg/dL (8.7-10.4) Cortisol AM Sample 15.64 ug/dL (5.27-22.45) Thyroid Stimulating Hormone (TSH) 4.46 uIU/mL (0.55-4.78) Troponin I High Sensitivity 5 ng/L (</=34) Test 03/16/25 20:43 B-Type Natriuretic Peptide 95.26 pg/mL (0-100) Other Laboratory Tests 03/18/25 07:57 Brief Hx & Hospital Course: 69-year-old female with past medical history of hypertension presents with complaints of dizziness x1 day. Patient is also endorsing chest pain, nausea, vomiting, diaphoresis. Patient endorses she is normally an active person with out complications. States her PCP recently made an adjustment to her home medications and added 10 mg Bystolic. Also takes losartan 50 mg twice a day. While in the emergency department patient did have positive orthostatic vital signs. At this time the patient denies fevers, chills, cough, congestion, abdominal pain, dysuria, leg edema. She is admitted and noted to be orthostatic hypotension. Patient is evaluated by Cardiology. Her nadolol as well as amlodipine has been discontinued. Patient is switched from losartan to irbesartan per Cardiology recommendations. Her blood pressure is improved. She is no longer orthostatic. Patient had [place] hoses placed. Patient and her daughter who is at bedside your counseled and educated regarding checking daily blood pressure to keep it below 150/85. Advised to follow up with the PCP to adjust her blood pressure medications. She is also prescribed clonidine as needed basis for systolic blood pressure above 160 or diastolic blood pressure above 90. Otherwise while in the hospital patient is clinically stable. Not having any other issues. Therefore it is felt she could be safely discharged home. Patient and daughter verbalized understanding over hospital diagnosis, treatment she received, discharge medications, discharge instructions and agree with the discharge follow-up plan of care as outlined. Consults/Reason for consult Assessment 69-year-old female with refractory hypertension and orthostatic hypotension after medication change, presenting with shortness of breath and functional decline. Cardiac ischemia less likely (negative troponin, normal EKG). Consider diastolic dysfunction or post-COVID cardiomyopathy contributing to dyspnea. Plan/Recommendation 1. Hypertension: Hypertensive crisis / Orthostatic hypotension: - Discontinue Nebivolol (due to bradycardia and symptomatic hypotension). - Continue Losartan 50 mg BID inpatient, patient can be placed on irbesartan as outpatient (is stronger than losartan) - Hold on dihydropyridines due to orthostatic hypotension - If other agents are needed for BPs control: hydralazine and prazosin can be used - Educate on orthostatic precautions: maintain hydration, avoid abrupt standing, use compression stockings. - TSH, aldosterone and cortisol ordered 2. Dyspnea on exertion: - Await echocardiogram to assess LV function and diastolic parameters. - Continue monitoring for decompensation. 3. Transient confusion episode: - Monitor for recurrence: normal head CT scan - If recurrent, consider neurology consult to rule out TIA. Follow-up: - Re-evaluate once echo results are available. Case discussed with Dr Fry Time spent on care 71 min Plan discussed with: Patient, Other (daughter ) NYHA 2 Physical activity limitations: Class2(Slight)fatigue,sob Date of Service: Mar 17, 2025 Billing Provider: KIP FRY Sr., MD Cardiology Common Codes: [id number] CARE 30-74 MIN Condition at Discharge: Stable Final Diagnosis/Problems List Malignant hypertension, orthostatic hypotension Discharge Disposition: Home Discharge Instruct/Medications Diet: Consistent carbohydrate, Cardiac 2g Na,low cholest Activity: No Restrictions, As Tolerated Follow Up/Referral: Primary care physician next week for blood pressure management Medications: Take medications as prescribed per discharge med reconciliation list. Stop taking losartan, nebivolol and amlodipine. Scheduled Irbesartan (Irbesartan), 1 TAB PO DAILY Losartan Potassium (Losartan Potassium), 1 TAB PO DAILY, (Reported) Scheduled PRN Clonidine Hydrochloride (Clonidine Hcl), 0.1 MG PO TID PRN Discharge Statement: "Patient was advised to return to the ER or call 911 if any headaches, dizziness, shortness of breath, chest pain, abdominal pain, bleeding, fevers, or worsening of medical condition. Patient was counseled about treatment plan, medications, possible side effects, patientverbalized understanding. All questions were answered to the best of my ability. This discharge took greater then 30 minutes in planning, reviewing documentation, counseling the patient, and discussing with other team members." ASSESSMENT ASSESSMENT Assessment Malignant hypertension, orthostatic hypotension CORDELIA JONES MD Mar 18, 2025 14:39
== END 2025-03-18 16:25 | disposition home or self-care (01) | DRG 312 ==
LOC: ER 19:31 → OVERFLOW 03-17 00:07 → TELE-EAST 03-17 00:44
PROVIDERS: ADMIT Nurse Practitioner Family; ATTEND Nurse Practitioner Family
DX: I95.1 Orthostatic hypotension (principal); I16.9 Hypertensive crisis, unspecified; Z79.899 Other long term (current) drug therapy; Z86.16 Personal history of COVID-19
CPT/HCPCS: 36415; 70450; 71045; 80048; 82088; 82533; 83880; 84244; 84443; 84484; 85025; 93005; 93306; 97110; 97116; 97163; 97530; G0378